=== PATIENT | female | born 1975 | race Caucasian/White ===

== ENCOUNTER 2016-06-15 07:17 | Observation (INO) | payer BC ==
[2016-06-15] VITALS (25 sets, daily range): BP systolic 100–141; BP diastolic 58–98; PULSE 65–116; RESP 15–33; Ht 160 cm; Wt 81.0 kg
[~2016-06-15] VITALS: Ht 160 cm; Wt 81.0 kg
[~2016-06-15 07:17] MED LIST: AZIT250T94 PO; HYDR-902 PO; ONDA4TAB14 PO; P-EP1CAP3 PO; PRED20TA PO
[2016-06-15] MEDS ORDERED: LIDOCAINE 1% (MPF) 30 ML INJ ONE (07:37)
[2016-06-15] MEDS ORDERED: BUPIVACAINE 0.25%/EPI (SDV) 30 ML INJ ONE (07:37)
[2016-06-15] MEDS ORDERED: BUPR-34 PO (07:42)
[2016-06-15] MEDS ORDERED: PROPOFOL 20 ML ONE (07:45)
[2016-06-15] MEDS ORDERED: GLYCOPYRROLATE 0.4 MG INJ ONE (07:45)
[2016-06-15] MEDS ORDERED: ROCURONIUM 50 MG INJ ONE (07:45)
[2016-06-15] MEDS ORDERED: MIDAZOLAM 1 MG/ML 2 ML INJ ONE (07:45)
[2016-06-15] MEDS ORDERED: NEOSTIGMINE 3 MG/3 ML SYRINGE ONE (07:45)
[2016-06-15] MEDS ORDERED: HYDROmorphONE 2 MG/ML SYG ONE (07:45)
[2016-06-15] MEDS ORDERED: ROPIVACAINE 0.5 % 30 ML VIAL ONE (07:46)
[2016-06-15] MEDS ORDERED: ONDANSETRON 4 MG INJ ONE (07:46)
[2016-06-15] MEDS ORDERED: METOCLOPRAMIDE 10 MG INJ ONE (07:46)
[2016-06-15] MEDS ORDERED: metroNIDAZOLE 500 MG/NS (PMX) 100 ML IVPB ONE ×2 (08:00→08:16)
[2016-06-15] MEDS ORDERED: CEFAZOLIN 2 GM/50 ML (PMX) 50 ML IVPB ONE (08:00)
[2016-06-15 08:07] LABS: INR 1.01; PROTIME 13.3 Sec (12.2-14.2)
[2016-06-15 08:10] LABS: BASOPHILS % 0.4 % (0.0-2.0); EOSINOPHILS # 0.2 10^3/ul (0.0-0.5); EOSINOPHILS % 1.7 % (0.0-7.0); HEMATOCRIT 39.6 % (37.0-47.0); HEMOGLOBIN 13.7 g/dl (12.0-16.0); LYMPHOCYTES # 3.4 10^3/ul (0.8-2.9); LYMPHOCYTES % 35.7 % (15.0-51.0); MEAN CORPUSCULAR HEMOGLOBIN 31.7 pg (29.0-33.0); MEAN CORPUSCULAR HGB CONC 34.5 g/dl (32.0-37.0); MEAN PLATELET VOLUME 8.1 fl (7.4-10.4); MONOCYTE # 0.6 10^3/ul (0.3-0.9); MONOCYTES % 6.9 % (0.0-11.0); NEUTROPHIL # 5.2 10^3/ul (1.6-7.5); NEUTROPHILS % 55.3 % (39.0-77.0); PLATELET COUNT 229 10^3/UL (140-440); RED BLOOD COUNT 4.31 10^6/ul (4.20-5.40); RED CELL DISTRIBUTION WIDTH 12.5 % (11.5-14.5); UNCORRECTED WBC 9.4 10^3/ul (4.8-10.8); WHITE BLOOD COUNT 9.4 10^3/ul (4.8-10.8)
[2016-06-15] MEDS ORDERED: CEFAZOLIN 1 GM INJ ONE (08:16)
[2016-06-15] MEDS ORDERED: LIDOCAINE 2% JELLY 5 ML ONE (08:18)
[2016-06-15 08:20] LABS: CONDITION 1
[2016-06-15] MEDS ORDERED: DIPHENHYDRAMINE 50 MG INJ IV PRN (08:30)
[2016-06-15] MEDS ORDERED: ONDANSETRON 4 MG INJ IV PRN (08:30)
[2016-06-15] MEDS ORDERED: hydrALAzine 20 MG INJ IV PRN (08:30)
[2016-06-15] MEDS ORDERED: HYDROmorphONE (0.2 MG/ML) 10ML SYG IV PRN ×2 (08:30)
[2016-06-15] MEDS ORDERED: MEPERIDINE 25 MG INJ IV PRN (08:30)
[2016-06-15] MEDS ORDERED: METOCLOPRAMIDE 10 MG INJ IV PRN (08:30)
[2016-06-15] MEDS ORDERED: LABETALOL HCL 20MG INJ IV PRN (08:30)
[2016-06-15 08:32] LABS: CALCIUM 9.8 mg/dl (8.4-10.2); CREATININE 0.91 mg/dl (0.44-1.00); POTASSIUM 3.4 mmol/L (3.5-5.1)
[2016-06-15] MEDS ORDERED: KETOROLAC 30 MG INJ ONE (08:58)
[2016-06-15] MEDS ORDERED: SENNA/DOCUSATE NA (8.6MG/50MG) TAB PO PRN (09:30)
[2016-06-15] MEDS ORDERED: ACETAMINOPHEN 325 MG TAB PO PRN (09:30)
[2016-06-15] MEDS ORDERED: HYDROCODONE/APAP (5/325) TAB PO PRN (09:30)
--- NOTE | 2016-06-15 09:34 | OPR ---
Date/Time of Note Date/Time of Note DATE: 06/15/16 TIME: 09:21 Operative Report Procedure Date: Jun 15, 2016 Preoperative Diagnosis Symptomatic cholelithiasis BMI 32 Postoperative Diagnosis Symptomatic cholelithiasis Abnormal liver color BMI 32 Operation Performed 1. 3 port laparoscopic cholecystectomy 2. Laparoscopic liver wedge resection biopsy 3. Local anesthetic injection, [address] Surgeon: SHALA ZARATE MD Anesthesia: general (plus local plus regional) Anesthesiologist: ANNIE CRAFT MD Estimated Blood Loss: 0 - 10 ml's Specimens Liver Gallbladder Tubes/Drains None Complications: None Pt Condition Post Procedure: stable Disposition: PACU Indications 41-year-old female with gallstones and abdominal pain here for cholecystectomy. Risks include but are not limited to bleeding, infection, abscess, seroma, damage to intestines, damage to the liver, damage to biliary tree, hernia formation, chronic pain, biloma, need for reoperations or further surgeries, CO , stroke, PE, DVT, pneumonia, organ failures, or even . Procedure Description Patient was brought and placed supine on the operating table SCDs were placed, preoperative antibiotics were administered, all pressure points were well-padded , and after induction of anesthesia patient was prepped and draped in usual sterile fashion and timeout was performed. Incision was made in the supraumbilical region, Veress was safely inserted, and after a negative SIP test , abdomen was insufflated to 15mmHg. Veress was removed and 5mm port was safely inserted. Laparoscopy was performed with a 5 mm 30 scope. No injuries were identified. The liver looks somewhat abnormal color. Gallbladder is without evidence of section. 12 mm port is placed in subxiphoid under direct visualization followed by another 5 mm port in the right upper quadrant. All port sites were injected with quarter percent Marcaine with epi and 1% lidocaine prior to any incisions. Patient was placed in reverse Trendelenburg and right side up on gallbladder was retracted superolaterally. The gallbladder was large without evidence of infection. Using electrocautery and blunt dissection I was able to identify the cystic artery and cystic duct. The duct tapered into the gallbladder. Full critical angle view was identified. Both structures were clipped 3 times proximally and once distally and transected. The gallbladder was taken off the liver with electrocautery. Hemostasis was obtained. Gallbladder was placed in an Endo Catch bag and removed through the subxiphoid port site. There was complete hemostasis. Due to the abnormality of the liver decision was made to perform liver wedge resection which was done with electrocautery and scissor with complete hemostasis right after. The specimen was sent to pathology for further evaluation. 12 mm made port site fascia was closed with Endo Close of an 0 Vicryl in a [id number]-el-tcuoo manner. Ports and CO2 were removed under direct visualization. Next complete hemostasis. Wounds were thoroughly irrigated skin was closed with 4-0 Monocryl in subcuticular fashion. Dermabond was applied. Patient was extubated and transferred to recovery room in stable condition and all counts were correct and the end of the operation 2. Bilateral transversus abdominis plane block was performed anesthesia at the termination of the operation. SHALA ZARATE MD Jun 15, 2016 09:34
[2016-06-15] MEDS: HYDROmorphONE (0.2 MG/ML) 10ML SYG IV PRN ×3 (09:43→12:13)
[2016-06-15] MEDS: HYDROmorphONE 1 MG/ML SYG IV PRN ×4 (13:18→20:51)
[2016-06-15] MEDS: D5W-0.45 NACL + KCL 20 MEQ 1,000 ML IV SCH ×3 (13:19→21:43)
--- NOTE | 2016-06-15 17:29 | PDOCDIS ---
Discharge Instructions DIAGNOSIS Discharge Diagnosis: symptomatic cholelithiasis s/p 3 port lap cholecystectomy and liver biopsy CONDITION Patient Condition: Good HOME CARE INSTRUCTIONS: Diet Instructions: Low Fat /Cholesterol ACTIVITY: Activity Restrictions: Avoid heavy lifting (Nothing > 20lbs x 2 weeks. Then gradually increase the limit.) No Sexual Activity (Sexual activity ok as long as you are comfortable and it is not olympic) Do not Drive (while on narcotics or in significant pain.) Do not operate Machinery (while on narcotics or in significatn pain.) Bathing Restrictions: Shower (No bathing for 1 week.)Activity Restrictions Comment: Ice pack to abdominal wall 10-20x/day, 20min each, prn pain/swelling. FOLLOW UP/APPOINTMENTS Appointments call to make a follow up appt with surgeon in 1-2 weeks ([phone]) SHALA ZARATE MD Jun 15, 2016 17:29
[2016-06-15] MEDS: ONDANSETRON 4 MG INJ IV PRN (18:22)
[2016-06-16] MEDS: ONDANSETRON 4 MG INJ IV PRN ×2 (00:06→03:30)
[2016-06-16 00:10] VITALS: BP 106/78; RESP 20
[2016-06-16] MEDS: HYDROmorphONE 1 MG/ML SYG IV PRN ×2 (03:31)
[2016-06-16 05:21] LABS: ALBUMIN 3.3 g/dl (3.3-4.9); POTASSIUM 4.1 mmol/L (3.5-5.1)
[2016-06-16 05:23] LABS: BASOPHILS % 0.3 % (0.0-2.0); BILIRUBIN,INDIRECT 0.4 mg/dl (0-1.1); BILIRUBIN,TOTAL 0.4 mg/dl (0.2-1.3); CREATININE 0.83 mg/dl (0.44-1.00); EOSINOPHILS # 0.1 10^3/ul (0.0-0.5); HEMATOCRIT 32.1 % (37.0-47.0); LYMPHOCYTES # 2.4 10^3/ul (0.8-2.9); LYMPHOCYTES % 29.6 % (15.0-51.0); MEAN CORPUSCULAR HEMOGLOBIN 31.8 pg (29.0-33.0); MEAN CORPUSCULAR HGB CONC 34.3 g/dl (32.0-37.0); MEAN CORPUSCULAR VOLUME 92.8 fl (82.0-101.0); MEAN PLATELET VOLUME 7.9 fl (7.4-10.4); MONOCYTE # 0.7 10^3/ul (0.3-0.9); MONOCYTES % 8.3 % (0.0-11.0); NEUTROPHIL # 4.9 10^3/ul (1.6-7.5); NEUTROPHILS % 60.8 % (39.0-77.0); PLATELET COUNT 165 10^3/UL (140-440); RED BLOOD COUNT 3.46 10^6/ul (4.20-5.40); RED CELL DISTRIBUTION WIDTH 12.9 % (11.5-14.5); UNCORRECTED WBC 8.1 10^3/ul (4.8-10.8); WHITE BLOOD COUNT 8.1 10^3/ul (4.8-10.8)
[2016-06-16 05:24] LABS: ALBUMIN/GLOBULIN RATIO 1.22; CALCIUM 8.2 mg/dl (8.4-10.2)
[2016-06-16 05:56] LABS: CONDITION 1
[2016-06-16] MEDS ORDERED: PANTOPRAZOLE (EC) 40 MG TAB PO SCH (06:00)
[2016-06-16 07:00] VITALS: BP 120/74; RESP 19
[2016-06-16] MEDS ORDERED: METOCLOPRAMIDE 10 MG INJ IV PRN (08:00)
[2016-06-16] MEDS ORDERED: KETOROLAC 30 MG INJ IV PRN (08:00)
--- NOTE | 2016-06-16 12:11 | PN ---
Date/Time of Note Date/Time of Note DATE: 06/16/16 TIME: 11:52 Assessment/Plan Lines/Catheters IV Catheter Type (from Nrs): Saline Lock Assessment/Plan Chief Complaint/Hosp Course 1. Nausea -decrease narcotics 2. BMI 32 -encourage diet optimization and exercise 3. Anemia, probably dilutional. No evidence of active bleeding 4. Hypokalemia, resolved 5. Hypocalcemia -monitor Thank you, Problems: Subjective 24 Hr Interval Summary Min pain and nausea. No vomiting. No f/c. No cp/sob. No cough. No cruz/dizzy/ visual or neuro changes. No dysuria. Exam/Review of Systems Vital Signs Vitals Vital Signs Date Time Temp Pulse Resp B/P Pulse Ox O2 Delivery O2 Flow Rate FiO2 06/16/16 07:00 98.7 86 19 120/74 97 06/15/16 20:06 Room Air 06/15/16 15:50 2.0 Intake and Output 06/15/16 06/15/16 06/16/16 15:00 23:00 07:00 Intake Total 1850 ml 1700 ml 1350 ml Output Total 5 ml Balance 1845 ml 1700 ml 1350 ml Exam Constitutional: alert, obese, oriented, No distress Psych: nl mood/affect, No anxiety, No confusion Head: atraumatic, normocephalic Eyes: EOMI, PERRL, nl conjunctiva, No icteric ENMT: mucosa pink and moist, nl external ears & nose Neck: non-tender, supple, No jvd Respiratory: normal air movement, No congested cough, No labored breathing Cardiovascular: regular rate and rhythm, No edema Gastrointestinal: soft, tender (min), No rebound or guarding Musculoskeletal: nl extremities to inspection, nl gait and stance, No joint tenderness Extremities: normal pulses, No calf tenderness, No edema Neurological: nl mental status, nl speech, nl strength Skin: nl turgor, No diaphoresis, No rash or lesions Lymph: nl lymph nodes Results Result Diagram: 06/16/16 0415 06/16/16 0415 SHALA ZARATE MD Jun 16, 2016 12:02
== END 2016-06-16 12:53 | disposition home or self-care (01) ==
LOC: SDS 07:17 → MS1 09:20 → SDS 09:20 → MS1 13:05
PROVIDERS: ADMIT Surgery; ATTEND Surgery
DX: K80.10 Calculus of gallbladder with chronic cholecystitis without obstruction (principal); D64.9 Anemia, unspecified; E87.6 Hypokalemia; E83.51 Hypocalcemia; Z88.2 Allergy status to sulfonamides
CPT/HCPCS: 47562; 80048; 80053; 84703; 85025; 85610; 85730; G0378; J0690; J1170; J1885; J2250; J2405; J2765; J2795; J3480; J2710

== ENCOUNTER 2016-08-21 10:12 | Emergency (ER) | payer BC ==
[~2016-08-21] VITALS: Ht 160 cm; Wt 75.0 kg
[~2016-08-21 10:12] MED LIST changes: -AZIT250T94 PO; +BUPR-34 PO; -HYDR-902 PO; -ONDA4TAB14 PO; -P-EP1CAP3 PO; -PRED20TA PO
[2016-08-21 10:15] VITALS: Ht 160 cm; Wt 75.0 kg
[2016-08-21] MEDS ORDERED: LIDOCAINE 2% (MDV) 20 ML INJ INJ ONE (10:30)
[2016-08-21] MEDS ORDERED: CEPH-443 PO (11:03)
--- NOTE | 2016-08-21 11:08 | ERD ---
ER Documentation Chief Complaint Date/Time DATE: 08/21/16 TIME: 11:05 Chief Complaint ingrown/infected R great toenial HPI 41-year-old female complaining of right big toenail ingrown for "quite some time ". She had pain and swelling in the lateral aspect of the right big toe. Pain was walking. Denies fever or chills. Denies purulent drainage. ROS All systems reviewed and are negative except as per history of present illness. 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 Reported Medications Bupropion Hcl* (Wellbutrin SR*) 150 Mg Tablet.sa, 150 MG PO DAILY, TAB.SA 06/15/16 Allergies Allergies: Coded Allergies: Sulfa (Sulfonamide Antibiotics) (Verified Allergy, Intermediate, NAUSEA VOMITING, 06/15/16) PMhx/Soc History of Surgery: Yes (TWO RIGHT KNEES AND TONSILECTOMYH) Anesthesia Reaction: No Hx Neurological Disorder: Yes Hx Respiratory Disorders: Yes Hx Cardiac Disorders: Yes Hx Psychiatric Problems: No (HX OF DEPRESSION) Hx Miscellaneous Medical Probl: No Hx Alcohol Use: Yes (OCCASIONALLY) Hx Substance Use: No Hx Tobacco Use: Yes (OCCASIONALLY) Physical Exam Vitals Vital Signs Date Time Temp Pulse Resp B/P Pulse Ox O2 Delivery O2 Flow Rate FiO2 08/21/16 10:15 98.4 76 14 118/78 99 Physical Exam General impression: Well-developed, well-nourished. Alert, oriented, in no acute distress Head: Normocephalic, atraumatic. Eyes: PERRL, EOM normal. Conjunctiva not injected. Respiration: Normal respiratory effort. Lungs clear to auscultate bilaterally. No wheezes, rales or rhonchi. Cardiovascular: Regular rate and rhythm. No murmurs or extra heart sounds. Extremities: Lateral aspect of the right big toe erythematous and swollen at the nail margin, tender, no purulent drainage. Normal range of motion of the right big toe. Neuro: Mental status normal, speech normal. DIRECTOR TALENT grossly intact. Skin: Normal turgor. No rash or lesions. Psych: Normal mood and affect. Results 24 hrs Current Medications Medications (Trade) Dose Ordered Sig/Rut Route PRN Reason Start Time Stop Time Status Last Admin Dose Admin Lidocaine (Xylocaine 2% (Mdv) 20 ml) 20 ml ONCE ONCE INJ 08/21/16 10:30 08/21/16 10:31 DC Procedures/MDM Procedure note: Partial excision of ingrown toenail Patient's affected toe is prepped with iodine solution. Digital block is given using 2% lidocaine. After appropriate anesthesia, the lateral edge of the right big toenail was freed from the nailbed and excised. Patient tolerated procedure well. Blood loss minimal. Patient to follow-up in 2 days for wound check. Departure Diagnosis: Primary Impression: Ingrown toenail Condition: Good Patient Instructions: Ingrown Toenail, Excised Additional Instructions: Return to this facility in 2 DAYS for a follow-up exam.Return sooner if your condition worsens. SO HOYT NP Aug 21, 2016 11:08
== END 2016-08-21 11:10 | disposition home or self-care (01) ==
LOC: FTE 10:12
DX: L60.0 Ingrowing nail (principal); F17.210 Nicotine dependence, cigarettes, uncomplicated

== ENCOUNTER 2017-02-11 00:35 | Emergency (ER) | payer BC ==
[~2017-02-11] VITALS: Ht 172.7 cm; Wt 70.0 kg
[2017-02-11 00:35] VITALS: BP 116/84; PULSE 92; RESP 15; TEMP 98.9
[~2017-02-11 00:35] MED LIST changes: +CEPH-443 PO
[2017-02-11] MEDS ORDERED: SOD CHLORIDE 0.9% 1,000 ML IV STA (00:38)
[2017-02-11 01:00] LABS: BASOPHILS % 0.3 % (0.0-2.0); EOSINOPHILS # 0.2 10^3/ul (0.0-0.5); HEMATOCRIT 36.6 % (37.0-47.0); HEMOGLOBIN 12.7 g/dl (12.0-16.0); LYMPHOCYTES # 3.2 10^3/ul (0.8-2.9); LYMPHOCYTES % 28.6 % (15.0-51.0); MEAN CORPUSCULAR HGB CONC 34.7 g/dl (32.0-37.0); MEAN CORPUSCULAR VOLUME 92.2 fl (82.0-101.0); MONOCYTE # 0.9 10^3/ul (0.3-0.9); MONOCYTES % 8.2 % (0.0-11.0); NEUTROPHILS % 60.6 % (39.0-77.0); PLATELET COUNT 203 10^3/UL (140-415); RED BLOOD COUNT 3.97 10^6/ul (4.20-5.40); RED CELL DISTRIBUTION WIDTH 12.1 % (11.5-14.5); WHITE BLOOD COUNT 11.2 10^3/ul (4.8-10.8)
[2017-02-11 01:28] LABS: ALBUMIN 4.1 g/dl (3.3-4.9); ALBUMIN/GLOBULIN RATIO 1.24; BILIRUBIN,INDIRECT 0.1 mg/dl (0-1.1); BILIRUBIN,TOTAL 0.1 mg/dl (0.2-1.3); CALCIUM 9.3 mg/dl (8.4-10.2); CREATININE 0.87 mg/dl (0.44-1.00); POTASSIUM 3.7 mmol/L (3.5-5.1); TOTAL PROTEIN 7.4 g/dl (6.1-8.1)
[2017-02-11] MEDS ORDERED: KETOROLAC 30 MG INJ IV STA (01:46)
[2017-02-11] MEDS ORDERED: KETOROLAC 30 MG INJ ONE (01:51)
[2017-02-11] MEDS ORDERED: morphine 4 MG/ML VIAL ONE (02:40)
[2017-02-11] MEDS ORDERED: ONDANSETRON 4 MG INJ ONE (02:40)
--- NOTE | 2017-02-11 02:44 | RADRPT ---
PROCEDURE: CT of the abdomen and pelvis without contrast CLINICAL INDICATION: Abdominal pain. TECHNIQUE: Spiral CT images through the abdomen and pelvis without the use of oral and without the use of intravenous contrast. The administered radiation dose is CTDI 19.31 and DLP 1110.45. One or more of the following dose reduction techniques were used: automated exposure control, adjustment o f the mA and/or kV according to patient size, or use of iterative reconstruction technique. COMPARISON: Ultrasound from 05/16/2016 FINDINGS: The study is limited by lack of intravenous contrast. Lower thorax: Slight dependent atalectasis of the lung bases is seen.. Liver: The liver is unremarkable in appearance. Biliary: Clips are seen from prior cholecystectomy.. No biliary ductal dilatation is seen. Pancreas: Unremarkable. No focal mass or inflammatory process. Spleen: The spleen is unremarkable in appearance Adrenal glands: Unremarkable in appearance. No focal nodule.. Genitourinary: No hydronephrosis or renal calculi are seen.. The bladder is unremarkable in appearan ce.. Gastrointestinal Tract: There is wall thickening inflammatory change about the distal sigmoid colon, centered about a diverticulum. Diffuse diverticulosis of the colon is seen, predominately involving the descending and sigmoid colon. No other focal areas of inflammation are seen. No free air or foc al abscess is seen. Minimal fluid in the right pelvis.. The appendix is unremarkable in appearance. Lymph nodes: No visible pathologic lymphadenopathy.. Vascular structures: The aorta and mesenteric vessels are unremarkable.. Peritoneal cavity: Stranding and slight fluid adjacent to the focal area of sigmoid diverticulitis. Reproductive Organs: IUD device is seen in place. The uterus is lobulated in contour which may refle ct fibroids. 2.6 cm probable left ovarian cyst.. Musculoskeletal: No bony abnormality is seen.. IMPRESSION: Sigmoid diverticulitis. No evidence for free air or abscess.. RPTAT: HLBE Physician Mariza Date Time Electronically viewed and signed by Physician Mariza on 02/11/2017 02:44 RENA/
[2017-02-11] MEDS ORDERED: morphine 4 MG/ML VIAL IV STA (02:58)
[2017-02-11] MEDS ORDERED: ONDANSETRON 4 MG INJ IV STA (02:58)
[2017-02-11 03:31] LABS: ADD UMIC YES; UR ASCORBIC ACID NEGATIVE (NEGATIVE); UR BACTERIA FEW /HPF (NONE SEEN); UR BILIRUBIN (Dip) NEGATIVE (NEGATIVE); UR BLOOD (Dip) 1+ mg/dL (NEGATIVE); UR CLARITY CLEAR (CLEAR); UR COLOR STRAW (YELLOW); UR GLUCOSE (Dip) NEGATIVE (NEGATIVE); UR KETONES (Dip) NEGATIVE (NEGATIVE); UR LEUKOCYTE ESTERASE (Dip) NEGATIVE Leu/ul (NEGATIVE); UR NITRITE (Dip) NEGATIVE (NEGATIVE); UR RBC 2 /HPF (0-5); UR SPECIFIC GRAVITY (Dip) 1.004 (1.003-1.030); UR TOTAL PROTEIN (Dip) NEGATIVE (NEGATIVE); UR UROBILINOGEN (Dip) NEGATIVE (NEGATIVE)
--- NOTE | 2017-02-11 04:28 | ERD ---
ER Documentation Chief Complaint Date/Time DATE: 02/11/17 TIME: 04:26 Chief Complaint HPI Very pleasant 41-year-old [facility] implant comes in with complaints of left lower quadrant abdominal pain for the past 2 days. No nausea no vomiting no chills no fever. Pain colicky nature mild to moderate intensity. No other current complaints. Normal bowel habits. ROS All systems reviewed and are negative except as per history of present illness. 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 Reported Medications Bupropion Hcl* (Wellbutrin SR*) 150 Mg Tablet.sa, 150 MG PO DAILY, TAB.SA 06/15/16 Allergies Allergies: Coded Allergies: Sulfa (Sulfonamide Antibiotics) (Verified Allergy, Intermediate, NAUSEA VOMITING, 06/15/16) PMhx/Soc History of Surgery: Yes (2x RIGHT KNEES, TONSILECTOMY, CHOLECYSTECTOMY) Anesthesia Reaction: No Hx Neurological Disorder: No Hx Respiratory Disorders: No Hx Cardiac Disorders: No Hx Psychiatric Problems: No Hx Miscellaneous Medical Probl: No Hx Alcohol Use: Yes (OCCASIONALLY) Hx Substance Use: No Hx Tobacco Use: No Smoking Status: Former smoker Physical Exam Physical Exam Const: [] Head: Atraumatic Eyes: Normal Conjunctiva ENT: Normal External Ears, Nose and Mouth. Neck: Full range of motion..~ No meningismus. Resp: Clear to auscultation bilaterally Cardio: Regular rate and rhythm, no murmurs Abd: Soft, non tender, non distended. Normal bowel sounds Skin: No petechiae or rashes Back: No midline or flank tenderness Ext: No cyanosis, or edema Neur: Awake and alert Psych: Normal Mood and Affect Result Diagram: 02/11/17 0045 02/11/17 0045 Results 24 hrs Laboratory Tests Test 02/11/17 00:45 02/11/17 02:00 White Blood Count 11.210^3/ul Red Blood Count 3.9710^6/ul Hemoglobin 12.7g/dl Hematocrit 36.6% Mean Corpuscular Volume 92.2fl Mean Corpuscular Hemoglobin 32.0pg Mean Corpuscular Hemoglobin Concent 34.7g/dl Red Cell Distribution Width 12.1% Platelet Count 69516^3/UL Mean Platelet Volume 10.0fl Neutrophils % 60.6% Lymphocytes % 28.6% Monocytes % 8.2% Eosinophils % 2.0% Basophils % 0.3% Nucleated Red Blood Cells % 0.0/100WBC Neutrophils # (Manual) 6.810^3/ul Lymphocytes # 3.210^3/ul Monocytes # 0.910^3/ul Eosinophils # 0.210^3/ul Basophils # 0.010^3/ul Nucleated Red Blood Cells # 0.010^3/ul Sodium Level 138mmol/L Potassium Level 3.7mmol/L Chloride Level 105mmol/L Carbon Dioxide Level 26mmol/L Anion Gap 11 Blood Urea Nitrogen 11mg/dl Creatinine 0.87mg/dl Glucose Level 105mg/dl Calcium Level 9.3mg/dl Total Bilirubin 0.1mg/dl Direct Bilirubin 0.00mg/dl Indirect Bilirubin 0.1mg/dl Aspartate Amino Transf (AST/SGOT) 23IU/L Alanine Aminotransferase (ALT/SGPT) 27IU/L Alkaline Phosphatase 96IU/L Total Protein 7.4g/dl Albumin 4.1g/dl Globulin 3.30g/dl Albumin/Globulin Ratio 1.24 Lipase 48U/L Urine Color STRAW Urine Clarity CLEAR Urine pH 6.0 Urine Specific [place] 1.004 Urine Ketones NEGATIVEmg/dL Urine Nitrite NEGATIVEmg/dL Urine Bilirubin NEGATIVEmg/dL Urine Urobilinogen NEGATIVEmg/dL Urine Leukocyte Esterase NEGATIVELeu/ul Urine Microscopic RBC 2/HPF Urine Microscopic WBC 0/HPF Urine Bacteria FEW/HPF Urine Hemoglobin 1+mg/dL Urine Glucose NEGATIVEmg/dL Urine Total Protein NEGATIVEmg/dl Current Medications Medications (Trade) Dose Ordered Sig/Rut Route PRN Reason Start Time Stop Time Status Last Admin Dose Admin Sodium Chloride (NS) 1,000 ml @ 1,000 mls/hr Q1H STAT IV 02/11/17 00:38 02/11/17 01:37 DC 02/11/17 02:07 Ketorolac Tromethamine (Toradol) 30 mg ONCE STAT IV 02/11/17 01:46 02/11/17 02:03 DC 02/11/17 02:07 Ketorolac Tromethamine (Toradol) 30 mg STK-MED ONCE .ROUTE 02/11/17 01:51 02/11/17 01:52 DC Ondansetron HCl (Zofran Inj) 4 mg STK-MED ONCE .ROUTE 02/11/17 02:40 02/11/17 02:41 DC Morphine Sulfate (morphine) 4 mg STK-MED ONCE .ROUTE 02/11/17 02:40 02/11/17 02:41 DC Morphine Sulfate (morphine) 4 mg ONCE STAT IV 02/11/17 02:58 02/11/17 02:59 DC 02/11/17 03:48 Ondansetron HCl (Zofran Inj) 4 mg ONCE STAT IV 02/11/17 02:58 02/11/17 02:59 DC 02/11/17 03:48 Procedures/MDM Medical decision-making: Very pleasant patient has what looks to be early diverticulitis. Stable for outpatient management. Will be discharged home with Cipro Flagyl and pain medication. Departure Diagnosis: Primary Impression: Diverticulitis Diverticulitis site: unspecified part of intestinal tract Diverticulitis bleeding: without bleeding Diverticulitis complication: with perforation and without abscess Qualified Code: K57.80 - Diverticulitis of intestine with perforation without abscess or bleeding, unspecified part of intestinal tract Condition: Stable NAHOMY NUGENT Feb 11, 2017 04:28
[2017-02-11 04:32] VITALS: Ht 172.7 cm; Wt 70.0 kg
[2017-02-11] MEDS ORDERED: CIPR500T4 PO (04:34)
[2017-02-11] MEDS ORDERED: METR500T PO (04:34)
[2017-02-11] MEDS ORDERED: ONDA4TAB14 PO (04:34)
[2017-02-11] MEDS ORDERED: HYDR-902 PO (04:34)
[2017-02-11] MEDS ORDERED: DICY10CA60 PO (05:08)
== END 2017-02-11 06:37 | disposition home or self-care (01) ==
LOC: E/R 00:35
DX: K57.80 Diverticulitis of intestine, part unspecified, with perforation and abscess without bleeding (principal); Z87.891 Personal history of nicotine dependence
CPT/HCPCS: 36415; 74176; 80053; 81001; 83690; 85025; 87086; 96374; 96375; 99285; J1885; J2270; J2405; J7030

== ENCOUNTER 2017-04-21 04:37 | Emergency (ER) | payer BC ==
[~2017-04-21] VITALS: Ht 165.1 cm; Wt 80.0 kg
[~2017-04-21 04:37] MED LIST changes: +CIPR500T4 PO; +DICY10CA60 PO; +HYDR-902 PO; +METR500T PO; +ONDA4TAB14 PO
[2017-04-21 04:47] VITALS: Ht 165.1 cm; Wt 80.0 kg
--- NOTE | 2017-04-21 05:20 | ERD ---
ER Documentation Chief Complaint Chief Complaint c/o pelvic pain intermittent x 2 months. Hx of ovarian cysts. HPI This 41-year-old female presents with a left pelvic pain that hurts worse when she runs around his physical activity. She has a recent history of an ovarian cyst and wants to see if is getting any larger or if it has ruptured. Pain is described as a sharp pain. Nausea or vomiting. ROS All systems reviewed and are negative except as per history of present illness. Medications Home Meds Active Scripts Dicyclomine Hcl* (Bentyl*) 10 Mg Capsule, 10 MG PO QID, #20 CAP Prov:NAHOMY NUGENT S. 02/11/17 Ondansetron (Ondansetron Odt) 4 Mg Tab.rapdis, 4 MG PO Q6H Y for NAUSEA AND/OR VOMITING, #10 TAB Prov:NAHOMY NUGENT S. 02/11/17 Hydrocodone/Acetaminophen (Moore 10-325 Tablet) 1 Each Tablet, 1 TAB PO Q6H Y for PAIN, #20 TAB Prov:NAHOMY NUGENT S. 02/11/17 Metronidazole* (Flagyl*) 500 Mg Tablet, 500 MG PO TID for 7 Days, TAB Prov:SAMIAHADAMNAHOMY S. 02/11/17 Ciprofloxacin Hcl* (Ciprofloxacin Hcl*) 500 Mg Tablet, 500 MG PO BID for 7 Days , TAB Prov:NAHOMY NUGENT S. 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 Reported Medications Bupropion Hcl* (Wellbutrin SR*) 150 Mg Tablet.sa, 150 MG PO DAILY, TAB.SA 06/15/16 Allergies Allergies: Coded Allergies: Sulfa (Sulfonamide Antibiotics) (Verified Allergy, Intermediate, NAUSEA VOMITING, 06/15/16) PMhx/Soc Medical and Surgical Hx: pt denies Medical Hx, pt denies Surgical Hx History of Surgery: Yes (2x RIGHT KNEES, TONSILECTOMY, CHOLECYSTECTOMY) Anesthesia Reaction: No Hx Neurological Disorder: No Hx Respiratory Disorders: No Hx Cardiac Disorders: No Hx Psychiatric Problems: No Hx Miscellaneous Medical Probl: No Hx Alcohol Use: Yes Hx Substance Use: No Hx Tobacco Use: No Smoking Status: Never smoker Physical Exam Vitals Vital Signs Date Time Temp Pulse Resp B/P Pulse Ox O2 Delivery O2 Flow Rate FiO2 04/21/17 04:47 98.2 74 16 132/84 100 Physical Exam Abd: Soft, mild right pelvic tenderness without guarding or rebound, non distended. Normal bowel sounds Procedures/MDM Pelvic pain secondary to ovarian cyst. No apparent rupture or torsion Ultrasound interpretation: Large right pelvic ovarian cyst with mild free fluid in the cul-de-sac. No torsion. Departure Diagnosis: Primary Impression: Ovarian cyst Condition: Stable AVELINA BUSTOS DO Apr 21, 2017 05:20
[2017-04-21] MEDS ORDERED: OXYC-279 PO (05:21)
--- NOTE | 2017-04-21 05:39 | RADRPT ---
PROCEDURE: ULTRASOUND PELVIS CLINICAL INDICATION: 41-year-old female with pelvic pain. TECHNIQUE: Multiple sonographic images of the pelvis were obtained utilizing a transabdominal and endovaginal technique. The images were reviewed on a PACS workstation. COMPARISON: CT abdomen/pelvis February 11, 2007. FINDINGS: The uterus is heterogeneous and measures 8.3 x 4.4 x 5.3 cm. There is a fundal focus of abnormal ech ogenicity measuring 14 x 10 mm. There is an anterior intramural hypodense focus measuring 10 x 7 mm. These are most suggestive of fibroids. The endometrial echo complex is within normal limits and ruma sures 5.4 mm. There is an intrauterine device within the endometrial canal. There is [id number] e free fluid. The right ovary has a normal echotexture and measures 7.0 x 4.0 x 3.7 cm. A right ovar fernando simple cyst measuring 5.9 x 3.3 x 3.8 cm. The left ovary has a normal echotexture and measures 3 .1 x 2.5 x 2.7 cm. There is flow identified within the ovaries bilaterally. No adnexal masses are noted. IMPRESSION: 1. Small uterine fibroids. 2. Intrauterine device. 3. Right ovarian cyst. 4. [id number]-sxtaiqgt pelvic free fluid. .Abebe Santana MD, MD Date Time Electronically viewed and signed by .Abebe Santana MD, on 04/21/2017 05:39 .M/
== END 2017-04-21 05:43 | disposition home or self-care (01) ==
LOC: E/R 04:37
DX: N83.201 Unspecified ovarian cyst, right side (principal)
CPT/HCPCS: 76830; 76856

== ENCOUNTER 2018-08-09 08:41 | Inpatient (IN) | payer BC, OTHER ==
[~2018-08-09] VITALS: Ht 160 cm; Wt 70.0 kg
[~2018-08-09 08:41] MED LIST changes: +BUPR-165 PO; -BUPR-34 PO; +DICY10CA40 PO; -DICY10CA60 PO; +HYDR-3980 PO; -HYDR-902 PO; +OXYC-279 PO
[2018-08-09] MEDS ORDERED: morphine 4 MG/ML VIAL IV STA (08:43)
[2018-08-09] MEDS ORDERED: SOD CHLORIDE 0.9% 1,000 ML IV STA (08:43)
[2018-08-09] MEDS ORDERED: ONDANSETRON 4 MG INJ IV STA ×3 (08:43→12:39)
--- NOTE | 2018-08-09 08:52 | ERD ---
ER Documentation Chief Complaint Chief Complaint HPI This is a 43-year-old female that presents to the emergency department with 2 da ys of severe abdominal pain. She states the pain is a sharp shooting pain. It is intermittent. It is most prominent in the suprapubic region that radiates to the left lower quadrant. The patient did have a similar episode of pain one year prior to arrival and was diagnosed with diverticulitis. However she denies any diarrhea or constipation. She did take magnesium and indicates she had no difficulty with constipation. She had no hemoptysis no hematemesis no melanotic stools. She states the pain is 10 out of 10 in intensity. She took Advil but this did not improve her pain. She had no fevers or shaking or chills. She denies any recent antibiotic use. She said no recent hospitalizations. ROS All systems reviewed and are negative except as per history of present illness. Medications Home Meds Active Scripts Oxycodone HCl/Acetaminophen (Percocet 5-325 mg Tablet) 1 Each Tablet, 1 EACH PO Q6, #30 TAB Prov:AVELINA BUSTOS DO 04/21/17 Dicyclomine HCl (Dicyclomine HCl) 10 Mg Capsule, 10 MG PO QID, #20 CAP Prov:NAHOMY NUGENT 02/11/17 Ondansetron (Ondansetron Odt) 4 Mg Tab.rapdis, 4 MG PO Q6H PRN for NAUSEA AND/OR VOMITING, #10 TAB Prov:NAHOMY NUGENT 02/11/17 Hydrocodone/Acetaminophen (Bigler 10-325 Tablet) 1 Each Tablet, 1 TAB PO Q6H PRN for PAIN, #20 TAB Prov:NAHOMY NUGENT 02/11/17 Metronidazole* (Flagyl*) 500 Mg Tablet, 500 MG PO TID for 7 Days, TAB Prov:NAHOMY NUGENT 02/11/17 Ciprofloxacin Hcl* (Ciprofloxacin Hcl*) 500 Mg Tablet, 500 MG PO BID for 7 Days, TAB Prov:NAHOMY NUGENT 02/11/17 Cephalexin* (Keflex*) 500 Mg Capsule, 500 MG PO QID for 5 Days, CAP Prov:SO [employer] 08/21/16 Reported Medications Bupropion Hcl* (Wellbutrin SR*) 150 Mg Tablet.sa, 150 MG PO DAILY, TAB.SA 06/15/16 Allergies Allergies: Coded Allergies: Sulfa (Sulfonamide Antibiotics) (Verified Allergy, Intermediate, NAUSEA VOMITING, 06/15/16) PMhx/Soc History of Surgery: Yes (2x RIGHT KNEES, TONSILECTOMY, CHOLECYSTECTOMY) Anesthesia Reaction: No Hx Neurological Disorder: No Hx Respiratory Disorders: No Hx Cardiac Disorders: No Hx Psychiatric Problems: No Hx Miscellaneous Medical Probl: No Hx Alcohol Use: Yes Hx Substance Use: No Hx Tobacco Use: No Physical Exam Vitals Vital Signs Date Temp Pulse Resp B/P (MAP) Pulse Ox O2 O2 Flow FiO2 Time Delivery Rate 08/09/18 98.3 95 18 132/91 100 09:12 (105) Physical Exam Constitutional:Well-developed. Well-nourished. Patient tearful and appears to be in a significant amount discomfort secondary to pain HEENT:Normocephalic. Atraumatic.Pupils were equal round reactive to light. Moist mucous membranes.No tonsillar exudates. Neck: No nuchal rigidity. No lymphadenopathy. No posterior cervical spine tenderness or step-offs. Respiratory: Not using accessory muscles of respiration.Lungs were clear to auscultation bilaterally. No rhonchi. No rales. No wheezing. Cardiovascular: Regular rate regular rhythm.No murmurs. No rubs were appreciated.S1, S2 normal. Distal pulses are palpable 2+ bilaterally. GI: Abdomen was soft. Left lower quadrant tenderness. Non Distended. No pulsatile abdominal masses or bruits. No rebound. No guarding. Bowel sounds were present and normal. Muscle skeletal: Full range of motion of both the upper and lower extremities bilaterally.Normal muscle tone.No assymetrical calf tenderness or swelling. Skin: No petechia, no purpura. No lesions on the palms or the soles of the feet. No maculopapular rash. NEURO: Patient was alert, awake, orientated x3.No facial droop. Gait observed and normal with no ataxia.Speech had regular rate and rhythm. No focal neurological deficits. Result Diagram: 08/09/18 0846 08/09/18 0846 Results 24 hrs Laboratory Tests Test 08/09/18 08:00 08/09/18 08:46 Serum HCG, Qualitative NEGATIVE White Blood Count 10.3 10^3/ul Red Blood Count 4.30 10^6/ul Hemoglobin 13.5 g/dl Hematocrit 39.9 % Mean Corpuscular Volume 92.8 fl Mean Corpuscular Hemoglobin 31.4 pg Mean Corpuscular Hemoglobin Concent 33.8 g/dl Red Cell Distribution Width 12.9 % Platelet Count 190 10^3/UL Mean Platelet Volume 9.8 fl Immature Granulocytes % 0.400 % Neutrophils % 73.5 % Lymphocytes % 16.2 % Monocytes % 8.3 % Eosinophils % 1.2 % Basophils % 0.4 % Nucleated Red Blood Cells % 0.0 /100WBC Immature Granulocytes # 0.040 10^3/ul Neutrophils # 7.5 10^3/ul Lymphocytes # 1.7 10^3/ul Monocytes # 0.9 10^3/ul Eosinophils # 0.1 10^3/ul Basophils # 0.0 10^3/ul Nucleated Red Blood Cells # 0.0 10^3/ul Urine Color YELLOW Urine Clarity CLEAR Urine pH 7.0 Urine Specific Dalton 1.012 Urine Ketones NEGATIVE mg/dL Urine Nitrite NEGATIVE mg/dL Urine Bilirubin NEGATIVE mg/dL Urine Urobilinogen NEGATIVE mg/dL Urine Leukocyte Esterase NEGATIVE Scott/ul Urine Hemoglobin NEGATIVE mg/dL Urine Glucose NEGATIVE mg/dL Urine Total Protein NEGATIVE mg/dl Sodium Level 140 mmol/L Potassium Level 4.0 mmol/L Chloride Level 104 mmol/L Carbon Dioxide Level 25 mmol/L Anion Gap 11 Blood Urea Nitrogen 13 mg/dl Creatinine 0.87 mg/dl Est Glomerular Filtrat Rate mL/min > 60 mL/min Glucose Level 97 mg/dl Calcium Level 9.6 mg/dl Total Bilirubin 0.7 mg/dl Direct Bilirubin 0.00 mg/dl Indirect Bilirubin 0.7 mg/dl Aspartate Amino Transf (AST/SGOT) 28 IU/L Alanine Aminotransferase (ALT/SGPT) 16 IU/L Alkaline Phosphatase 79 IU/L Total Protein 7.8 g/dl Albumin 4.5 g/dl Globulin 3.30 g/dl Albumin/Globulin Ratio 1.36 Amylase Level 59 U/L Lipase 40 U/L Current Medications Medications Dose Sig/Rut Start Time Status Last (Trade) Ordered Route PRN Stop Time Admin Dose Reason Admin Sodium 1,000 ml @ Q1H STAT 08/09/18 DC 08/09/18 Chloride 1,000 mls/hr IV 08:43 3/9/19 09:10 09:42 Morphine 4 mg ONCE STAT 08/09/18 DC 08/09/18 Sulfate IV 08:43 08/09/18 09:10 (morphine) 08:45 Ondansetron 4 mg ONCE STAT 08/09/18 DC 08/09/18 HCl (Zofran IV 08:43 08/09/18 09:10 Inj) 08:45 1 mg ONCE STAT 08/09/18 DC 08/09/18 Hydromorphone IV 09:21 08/09/18 09:43 HCl 09:37 (Dilaudid) Ondansetron 4 mg ONCE STAT 08/09/18 DC 08/09/18 HCl (Zofran IV 09:21 08/09/18 09:43 Inj) 09:37 IV Flush 10 ml STK-MED 08/09/18 DC (NS 10 ml) ONCE .ROUTE 10:00 08/09/18 10:01 Sodium 100 ml @ ud STK-MED 08/09/18 DC Chloride ONCE .ROUTE 10:00 08/09/18 10:01 Iohexol 150 ml STK-MED 08/09/18 DC (Omnipaque ONCE .ROUTE 10:00 08/09/18 300mg/ ml) 10:01 100 ml @ ONCE STAT 08/09/18 Metronidazole 100 mls/hr IVPB 11:10 08/09/18 12:09 200 ml @ ONCE STAT 08/09/18 Ciprofloxacin 200 mls/hr IVPB 11:10 08/09/18 / Dextrose 12:09 Procedures/MDM This patient presented to the emergency department with abdominal pain and was seen and evaluated by myself. My differential diagnosis included but was not limited to abdominal aortic aneurysm, appendicitis, pancreatitis, perforated peptic ulcer, perforated viscus, Boerhaaves syndrome or visceral pain such as diverticulitis, DKA, esophagitis, hepatitis or bowel obstruction. The patient was placed on a ekg monitor, continuous pulse oximetry, and IV access was established by nursing staff. The patient was given intravenous morphine and Zofran for analgesic control. Due to the severity of the patient's pain I did feel she required a CT scan of the abdomen. This was reviewed by the radiologist myself and indicated the following with IV contrast: 1. Mid and distal sigmoid diverticulitis with mucosal thickening and pericolonic fat stranding. There are adjacent phlegmonous changes. No mature abscess is seen. Small free fluid is noted within the pelvis. 2. Status post cholecystectomy. 3. IUD in place. Observation Note: Time: 4 hours Family Hx: No Hypertension Evaluation: Multiple exams showed improving symptoms and no evidence of improving of her symptoms as her pain continued to return. Therefore she required multiple doses of analgesic medication I did feel required admission for intractable abdominal pain. She was given IV ciprofloxacin and IV Flagyl. She will be admitted to the hospitalist for observation. Departure Diagnosis: Primary Impression: Diverticulitis Condition: Serious ROYA PRINCE MD Aug 09, 2018 08:52
[2018-08-09] MEDS ORDERED: HYDROmorphONE 1 MG/ML SYG IV STA ×2 (09:21→12:39)
[2018-08-09] MEDS ORDERED: SOD CHLORIDE 0.9% 100 ML ONE (10:00)
[2018-08-09] MEDS ORDERED: IOHEXOL 300MG/ML 150 ML BTL ONE (10:00)
[2018-08-09] MEDS ORDERED: CIPROFLOXACIN 400MG/D5W 200 ML IVPB STA (11:10)
[2018-08-09] MEDS ORDERED: metroNIDAZOLE 500 MG/NS (PMX) 100 ML IVPB STA (11:10)
[2018-08-09] MEDS ORDERED: morphine 2 MG INJ IV PRN (12:30)
[2018-08-09] MEDS ORDERED: NACL 0.9% 3 ML SYG IV SCH (12:30)
--- NOTE | 2018-08-09 12:52 | HP ---
Date/Time of Note Date/Time of Note DATE: 08/09/18 TIME: 12:44 Assessment/Plan VTE Prophylaxis SCD applied (from Nsg): Yes Pharmacological prophylaxis: NA/contraindicated Pharm contraindication: low risk/ambulating Lines/Catheters IV Catheter Type (from Nrsg): Saline Lock Assessment/Plan Assessment/Plan 1. Acute diverticulitis - Will continue NPO and IVF - Cipro and Flagyl on board and when abdominal pain improves and tolerating PO, will transition to PO - Pain control - CT scan results noted with diverticulitis - Will need outpatient GI follow up for colonoscopy in 6-8 weeks following resolution 2. Diet - NPO 3. DVT ppx - SCD 4. GI ppx - PPI 5. Disposition - Admit to med/surg for treatment of Acute diverticulitis Result Diagram: 08/09/18 0846 08/09/18 0846 Results 24hrs Laboratory Tests Test 08/09/18 08:00 08/09/18 08:46 Serum HCG, Qualitative NEGATIVE White Blood Count 10.3 Red Blood Count 4.30 Hemoglobin 13.5 Hematocrit 39.9 Mean Corpuscular Volume 92.8 Mean Corpuscular Hemoglobin 31.4 Mean Corpuscular Hemoglobin Concent 33.8 Red Cell Distribution Width 12.9 Platelet Count 190 Mean Platelet Volume 9.8 Immature Granulocytes % 0.400 Neutrophils % 73.5 Lymphocytes % 16.2 Monocytes % 8.3 Eosinophils % 1.2 Basophils % 0.4 Nucleated Red Blood Cells % 0.0 Immature Granulocytes # 0.040 H Neutrophils # 7.5 Lymphocytes # 1.7 Monocytes # 0.9 Eosinophils # 0.1 Basophils # 0.0 Nucleated Red Blood Cells # 0.0 Urine Color YELLOW Urine Clarity CLEAR Urine pH 7.0 Urine Specific Corb[place] 1.012 Urine Ketones NEGATIVE Urine Nitrite NEGATIVE Urine Bilirubin NEGATIVE Urine Urobilinogen NEGATIVE Urine Leukocyte Esterase NEGATIVE Urine Hemoglobin NEGATIVE Urine Glucose NEGATIVE Urine Total Protein NEGATIVE Sodium Level 140 Potassium Level 4.0 Chloride Level 104 Carbon Dioxide Level 25 Anion Gap 11 Blood Urea Nitrogen 13 Creatinine 0.87 Est Glomerular Filtrat Rate mL/min > 60 Glucose Level 97 Calcium Level 9.6 Total Bilirubin 0.7 Direct Bilirubin 0.00 Indirect Bilirubin 0.7 Aspartate Amino Transf (AST/SGOT) 28 Alanine Aminotransferase (ALT/SGPT) 16 Alkaline Phosphatase 79 Total Protein 7.8 Albumin 4.5 Globulin 3.30 H Albumin/Globulin Ratio 1.36 Amylase Level 59 Lipase 40 HPI/ROS Admit Date/Time Admit Date/Time 08/09/18 1200 Hx of Present Illness 43 yo F presented to ED for worsening abdominal pain for the past 2 days. Patient describes the pain as severe, sharp, intermittent, diffuse but mostly in suprapubic area radiating to upper quadrant. She denies any nausea, vomiting, fevers, chills, diarrhea, constipation, or urinary issues. Patient does admit to experiencing similar episode of pain a year ago and was diagnosed with diverticulitis. Patient initially believes she had constipation and took magnesium and advil with no relief of pain. She has had a BM today. She denies any hematochezia or melena. Patient admits to recent travel to [place] and has been not been watching her diet. Denies any chest pain or shortness of breath. ROS All 12 systems reviewed and pertinent positives as per HPI. All others negative. Constitutional: No chills, No fatigue, No nausea Eyes: No discharge ENT: No congestion Respiratory: No cough, No shortness of breath, No sputum, No wheezing Cardiovascular: No chest pain, No lightheadedness, No palpitations Gastrointestinal: pain; No blood, No constipation, No diarrhea, No nausea, No vomiting Genitourinary: no complaints Musculoskeletal: no complaints Skin: No laceration, No rash Neurologic: headache; No confusion, No dizziness, No focal-weakness, No syncope Endocrine: no complaints Lymphatic: no complaints Psychological: nl mood/affect Immunologic: no complaints PMH/Family/Social Past Medical History Medical History: no pertinent history Medications Current Medications Bupropion HCl (Wellbutrin Sr) 150 mg DAILY PO ; Start 08/10/18 at 09:00 Dextrose/Sodium Chloride 1,000 ml @ 75 mls/hr [id number] IV ; Start 08/09/18 at 12:06 IV Flush (NS 3 ml) 3 ml PER PROTOCOL IV ; Start 08/09/18 at 12:30 Ondansetron HCl (Zofran Inj) 4 mg Q6H PRN IV NAUSEA/VOMITING; Start 08/09/18 at 12:30 Acetaminophen (Tylenol Tab) 650 mg Q6H PRN PO .PAIN 1-3 OR TEMP; Start 08/09/18 at 12:30 Morphine Sulfate (morphine) 2 mg Q4H PRN IV .SEVERE PAIN 7-10; Start 08/09/18 at 12:30 Pantoprazole (Protonix Iv) 40 mg DAILY@06 IV ; Start 08/10/18 at 06:00 Ciprofloxacin/ Dextrose 200 ml @ 200 mls/hr Q12 IVPB ; Start 08/09/18 at 21:00 Metronidazole 100 ml @ 100 mls/hr Q8 IVPB ; Start 08/09/18 at 14:00 Coded Allergies: Sulfa (Sulfonamide Antibiotics) (Verified Allergy, Intermediate, NAUSEA VOMITING, 06/15/16) Past Surgical History Past Surgical Hx: cholecystectomy, other (tonsillectomy) Family History Significant Family History: no pertinent family hx Social History Alcohol Use: rarely Smoking Status: Never smoker Drug Use: none Exam/Review of Systems Vital Signs Vitals Vital Signs Date Temp Pulse Resp B/P (MAP) Pulse Ox O2 O2 Flow FiO2 Time Delivery Rate 08/09/18 98.3 87 20 108/74 99 Room Air 11:25 (85) Exam Exam General: Patient is laying in bed. distress secondary to pain Head: Normocephalic atraumatic Eyes: EOMI, pupils reactive to light Neck: Supple, nontender, midline Chest: nontender Respiratory: Clear to auscultation bilaterally. no wheezing or rhonchi Cardiovascular: S1, S2, regular rate and rhythm, no obvious murmurs Gastrointestinal: soft, diffusely tender to palpation, nondistended, bowel sounds heard. no rebound or guarding Neurological: Moves all extremities spontaneously. no focal deficits. motor and sensory intact Skin: No new skin lesions Additional Comments Home medications reviewed PROCEDURE: CT Abdomen and Pelvis with contrast. CLINICAL INDICATION: Abdominal pain. TECHNIQUE: CT scan of the abdomen and pelvis with contrast was performed utilizing axial tomographic images from the domes the diaphragm to the symphysis pubis. The patient was scanned post uncomplicated intravenous administration of 100 cc of Omnipaque-300. Coronal and sagittal reformatted images were obtained from the axial source images. Images were reviewed on a high-resolution PACS workstation. The total exam CTDI equals 17.59 mGy and the total exam DLP equals 1004.80 mGy-cm. One or more of the following dose reduction techniques were used: Automated exposure control, adjustment of the mA and / or kV according to patient size, or use of iterative reconstruction technique. DICOM images are available. COMPARISON: None. FINDINGS: The lung bases demonstrate mild bibasilar atelectasis. The liver is normal in size and contour. No focal intrahepatic masses are identified. There is no intra or extrahepatic biliary dilatation. The gallbladder is surgically absent. The spleen, pancreas, and adrenal glands are unremarkable. The kidneys are symmetric in size and demonstrate normal enhancement. No hydronephrosis or hydroureter is seen. No renal parenchymal mass is identified. The urinary bladder is unremarkable. The bowel demonstrates normal course and caliber. There is no evidence of bowel obstruction. The appendix is normal in appearance. There are sigmoid diverticula with mucosal thickening of the mid and distal sigmoid colon. There is pericolonic fat stranding. An IUD is in place. There is small free fluid in the pelvis. No intraperitoneal free air or mature abscess identified. No retroperitoneal, mesenteric, or inguinal adenopathy is identified. The abdominal aorta and major branching vessels are normal in caliber. The osseous structures are unremarkable. No significant subcutaneous soft tissue abnormality is identified. IMPRESSION: 1. Mid and distal sigmoid diverticulitis with mucosal thickening and pericolonic fat stranding. There are adjacent phlegmonous changes. No mature abscess is seen. Small free fluid is noted within the pelvis. 2. Status post cholecystectomy. 3. IUD in [address]. RPTAT: HH .Madyson Mayorga MD, Date Time Electronically viewed and signed by .Madyson Mayorga MD, on 08/09/2018 11:01 FRACISCO BELLE MD Aug 09, 2018 12:52
[2018-08-09] MEDS ORDERED: ONDANSETRON 4 MG INJ IV PRN (13:00)
[2018-08-09] MEDS ORDERED: ACETAMINOPHEN 325 MG TAB PO PRN (13:00)
[2018-08-09 13:30] VITALS: BP 117/72; PULSE 84; RESP 17
[2018-08-09] MEDS: metroNIDAZOLE 500 MG/NS (PMX) 100 ML IVPB SCH ×2 (13:55→21:38)
[2018-08-09] MEDS: DEXTROSE 5%-0.45% NACL 1,000 ML IV SCH (13:58)
[2018-08-09] MEDS: ACETAMINOPHEN 325 MG TAB PO PRN (15:41)
[2018-08-09 15:50] VITALS: Ht 160 cm; Wt 70.0 kg
[2018-08-09] MEDS: ONDANSETRON 4 MG INJ IV PRN (17:56)
[2018-08-09] MEDS: HYDROmorphONE 1 MG/ML SYG IV PRN (17:56)
[2018-08-09 19:40] VITALS: BP 98/59; PULSE 74; RESP 18
[2018-08-09] MEDS: CIPROFLOXACIN 400MG/D5W 200 ML IVPB SCH (22:37)
[2018-08-10] MEDS: HYDROmorphONE 1 MG/ML SYG IV PRN (01:29)
[2018-08-10 02:30] VITALS: BP 106/60; PULSE 65; RESP 18
[2018-08-10] MEDS: DEXTROSE 5%-0.45% NACL 1,000 ML IV SCH (05:52)
[2018-08-10] MEDS: metroNIDAZOLE 500 MG/NS (PMX) 100 ML IVPB SCH (05:52)
[2018-08-10] MEDS ORDERED: PANTOPRAZOLE 40 MG INJ IV SCH (06:00)
[2018-08-10] MEDS ORDERED: VITAMIN A & D 5 GM OINT PACKET TOP ONE (06:09)
[2018-08-10] MEDS: ACETAMINOPHEN 325 MG TAB PO PRN (06:12)
[2018-08-10 07:23] VITALS: BP 95/52; PULSE 64; RESP 18
[2018-08-10] MEDS: ONDANSETRON 4 MG INJ IV PRN (07:39)
--- NOTE | 2018-08-10 08:53 | PN ---
Date/Time of Note Date/Time of Note DATE: 08/10/18 TIME: 08:53 Assessment/Plan VTE Prophylaxis Risk score (from Ns)>0 risk: 1 SCD applied (from Ns): No SCD contraindicated: low risk/ambulating Pharmacological prophylaxis: NA/contraindicated Pharm contraindication: low risk/ambulating Lines/Catheters IV [facility]from [facility] Peripheral IV Urinary Cath still in place: No Assessment/Plan Assessment/Plan 1. Acute diverticulitis - Abdominal pain improving and will advance diet as tolerated. If doing well follow PO intake with no worsening of abdominal pain will d/c home - Will transition to PO Cipro and Flagyl to complete a 10 day course - Pain control - CT scan results noted with diverticulitis - Will need outpatient GI follow up for colonoscopy in 6-8 weeks following resolution 2. Disposition - When tolerating PO intake without any worsening of abdominal pain, will d/c home Result Diagram: 08/10/18 0433 08/10/18 0432 Results 24hrs Laboratory Tests Test 08/10/18 04:32 08/10/18 04:33 Sodium Level 140 Potassium Level 3.9 Chloride Level 105 Carbon Dioxide Level 27 Anion Gap 8 Blood Urea Nitrogen 7 Creatinine 0.87 Est Glomerular Filtrat Rate mL/min > 60 Glucose Level 94 Calcium Level 8.5 Magnesium Level 2.2 Total Bilirubin 0.6 Direct Bilirubin 0.00 Indirect Bilirubin 0.6 Aspartate Amino Transf (AST/SGOT) 24 Alanine Aminotransferase (ALT/SGPT) 20 Alkaline Phosphatase 57 Total Protein 6.1 # Albumin 3.4 # Globulin 2.70 Albumin/Globulin Ratio 1.25 White Blood Count 5.8 # Red Blood Count 3.56 L Hemoglobin 11.3 L Hematocrit 33.9 L Mean Corpuscular Volume 95.2 Mean Corpuscular Hemoglobin 31.7 Mean Corpuscular Hemoglobin Concent 33.3 Red Cell Distribution Width 12.8 Platelet Count 153 Mean Platelet Volume 10.2 Immature Granulocytes % 0.200 Neutrophils % 53.9 Lymphocytes % 33.0 Monocytes % 10.2 Eosinophils % 2.4 Basophils % 0.3 Nucleated Red Blood Cells % 0.0 Immature Granulocytes # 0.010 Neutrophils # 3.1 Lymphocytes # 1.9 Monocytes # 0.6 Eosinophils # 0.1 Basophils # 0.0 Nucleated Red Blood Cells # 0.0 Subjective 24 Hr Interval Summary Free Text/Dictation Patient is doing well and states lower abdominal pain is significantly better but wet press tender in lower abdominal area. No acute overnight events. Tolerated clear diet this am. Exam/Review of Systems Exam Vitals Vital Signs Date Temp Pulse Resp B/P (MAP) Pulse Ox O2 O2 Flow FiO2 Time Delivery Rate 08/10/18 98.0 64 18 95/52 (66) 93 Room Air 07:23 Intake and Output 08/09/18 08/09/18 08/10/18 1414:59 22:59 06:59 IntakeIntake Total 300 ml 400 ml 1000 ml BalanceBalance 300 ml 400 ml 1000 ml Exam General: Patient is laying in bed. more comfortable this am Chest: nontender Respiratory: Clear to auscultation bilaterally. no wheezing or rhonchi Cardiovascular: S1, S2, regular rate and rhythm, no obvious murmurs Gastrointestinal: soft, mildly tender to palpation, nondistended, bowel sounds heard Skin: No new skin lesions Results Results 24hrs Laboratory Tests Test 08/10/18 04:32 08/10/18 04:33 Sodium Level 140 Potassium Level 3.9 Chloride Level 105 Carbon Dioxide Level 27 Anion Gap 8 Blood Urea Nitrogen 7 Creatinine 0.87 Est Glomerular Filtrat Rate mL/min > 60 Glucose Level 94 Calcium Level 8.5 Magnesium Level 2.2 Total Bilirubin 0.6 Direct Bilirubin 0.00 Indirect Bilirubin 0.6 Aspartate Amino Transf (AST/SGOT) 24 Alanine Aminotransferase (ALT/SGPT) 20 Alkaline Phosphatase 57 Total Protein 6.1 # Albumin 3.4 # Globulin 2.70 Albumin/Globulin Ratio 1.25 White Blood Count 5.8 # Red Blood Count 3.56 L Hemoglobin 11.3 L Hematocrit 33.9 L Mean Corpuscular Volume 95.2 Mean Corpuscular Hemoglobin 31.7 Mean Corpuscular Hemoglobin Concent 33.3 Red Cell Distribution Width 12.8 Platelet Count 153 Mean Platelet Volume 10.2 Immature Granulocytes % 0.200 Neutrophils % 53.9 Lymphocytes % 33.0 Monocytes % 10.2 Eosinophils % 2.4 Basophils % 0.3 Nucleated Red Blood Cells % 0.0 Immature Granulocytes # 0.010 Neutrophils # 3.1 Lymphocytes # 1.9 Monocytes # 0.6 Eosinophils # 0.1 Basophils # 0.0 Nucleated Red Blood Cells # 0.0 Medications Medication Current Medications Bupropion HCl (Wellbutrin Sr) 150 mg DAILY PO ; Start 08/10/18 at 09:00 Dextrose/Sodium Chloride 1,000 ml @ 75 mls/hr [id number] IV Last administered on 08/10/18 05:52; Admin Dose 75 MLS/HR; Start 08/09/18 at 12:06 IV Flush (NS 3 ml) 3 ml PER PROTOCOL IV ; Start 08/09/18 at 12:30 Ondansetron HCl (Zofran Inj) 4 mg Q6H PRN IV NAUSEA/VOMITING Last administered on 08/10/18 07:39; Admin Dose 4 MG; Start 08/09/18 at 12:30 Acetaminophen (Tylenol Tab) 650 mg Q6H PRN PO .PAIN 1-3 OR TEMP Last administered on 08/10/18 06:12; Admin Dose 650 MG; Start 08/09/18 at 12:30 Morphine Sulfate (morphine) 2 mg Q4H PRN IV MODERATE PAIN LEVEL 4-6 Last administered on 08/10/18 07:40; Admin Dose 2 MG; Start 08/09/18 at 12:30 Pantoprazole (Protonix Iv) 40 mg DAILY@06 IV Last administered on 08/10/18 05:52; Admin Dose 40 MG; Start 08/10/18 at 06:00 Ciprofloxacin/ Dextrose 200 ml @ 200 mls/hr Q12 IVPB Last administered on 08/09/18 22:37; Admin Dose 200 MLS/HR; Start 08/09/18 at 21:00 Metronidazole 100 ml @ 100 mls/hr Q8 IVPB Last administered on 08/10/18 05:52 ; Admin Dose 100 MLS/HR; Start 08/09/18 at 14:00 Hydromorphone HCl (Dilaudid) 1 mg Q4H PRN IV SEVERE PAIN LEVEL 7-10 Last administered on 08/10/18 01:29; Admin Dose 1 MG; Start 08/09/18 at 13:00 Ondansetron HCl (Zofran Inj) 4 mg BRIDGE ORDER PRN IV NAUSEA/VOMITING; Start 08/09/18 at 13:00; Stop 08/10/18 at 12:59 Acetaminophen (Tylenol Tab) 650 mg ER BRIDGE PRN PO .MILD PAIN 1-3 OR TEMP; Start 08/09/18 at 13:00; Stop 08/10/18 at 12:59 YOSHI,FRACISCO MD Aug 10, 2018 08:53
[2018-08-10] MEDS ORDERED: HYDROCODONE/APAP (5/325) TAB PO PRN (09:00)
[2018-08-10] MEDS ORDERED: BUPROPION (SR) 150 MG TAB PO SCH (09:00)
[2018-08-10] MEDS: CIPROFLOXACIN 400MG/D5W 200 ML IVPB SCH (10:01)
[2018-08-10] MEDS ORDERED: traMADol 50 MG TAB PO PRN (10:30)
[2018-08-10] MEDS ORDERED: HYDR-3601 PO (13:36)
[2018-08-10] MEDS ORDERED: METR-122 PO (13:39)
[2018-08-10] MEDS ORDERED: CIPR500T4 PO (13:39)
--- NOTE | 2018-08-10 13:46 | PDOCDIS ---
Discharge Instructions DIAGNOSIS Discharge Diagnosis 1. Acute diverticulitis CONDITION [id number] Patient Condition: [id number] Stable HOME CARE INSTRUCTIONS: [id number] Diet Instructions: [id number] Regular ACTIVITY: [id number] Activity Restrictions: [id number] No Restrictions FOLLOW UP/APPOINTMENTS Follow-up Plan 1. Follow up with your primary care physician in 1 week 2. Take Cipro 500mg twice a day with next dose tonight (08/10) until you finish the prescription. Take Flagyl every 8 hours with next dose tonight as well (08/10) until prescription finished to complete a 10 day course of antibiotics 3. You should follow up with a GI specialist to schedule a colonoscopy in 8 weeks once diverticulitis has resolved 4. Take pain control as needed and increase fiber in diet to avoid constipation 5. If experiencing concerning symptoms, please go to the nearest emergency department FRACISCO BELLE MD Aug 10, 2018 13:46
[2018-08-10] MEDS ORDERED: metroNIDAZOLE 500 MG TAB PO SCH (14:00)
[2018-08-10 15:03] VITALS: BP 104/58; PULSE 82; RESP 18
--- NOTE | 2018-08-10 17:35 | DS ---
Date/Time of Note Date/Time of Note DATE: 08/10/18 TIME: 17:33 Discharge Summary Admission/Discharge Info Admit Date/Time Aug 09, 2018 at 12:49 Discharge Date/Time Aug 10, 2018 at 15:30 Discharge Diagnosis 1. Acute diverticulitis Patient Condition: Stable Procedures PROCEDURE: CT Abdomen and Pelvis with contrast. CLINICAL INDICATION: Abdominal pain. TECHNIQUE: CT scan of the abdomen and pelvis with contrast was performed utilizing axial tomographic images from the domes the diaphragm to the symphysis pubis. The patient was scanned post uncomplicated intravenous administration of 100 cc of Omnipaque-300. Coronal and sagittal reformatted images were obtained from the axial source images. Images were reviewed on a high-resolution PACS workstation. The total exam CTDI equals 17.59 mGy and the total exam DLP equals 1004.80 mGy-cm. One or more of the following dose reduction techniques were used: Automated exposure control, adjustment of the mA and / or kV according to patient size, or use of iterative reconstruction technique. DICOM images are available. COMPARISON: None. FINDINGS: The lung bases demonstrate mild bibasilar atelectasis. The liver is normal in size and contour. No focal intrahepatic masses are identified. There is no intra or extrahepatic biliary dilatation. The gallbladder is surgically absent. The spleen, pancreas, and adrenal glands are unremarkable. The kidneys are symmetric in size and demonstrate normal enhancement. No hydronephrosis or hydroureter is seen. No renal parenchymal mass is identified. The urinary bladder is unremarkable. The bowel demonstrates normal course and caliber. There is no evidence of bowel obstruction. The appendix is normal in appearance. There are sigmoid diverticula with mucosal thickening of the mid and distal sigmoid colon. There is pericolonic fat stranding. An IUD is in place. There is small free fluid in the pelvis. No intraperitoneal free air or mature abscess identified. No retroperitoneal, mesenteric, or inguinal adenopathy is identified. The abdominal aorta and major branching vessels are normal in caliber. The osseous structures are unremarkable. No significant subcutaneous soft tissue abnormality is identified. IMPRESSION: 1. Mid and distal sigmoid diverticulitis with mucosal thickening and pericolonic fat stranding. There are adjacent phlegmonous changes. No mature abscess is seen. Small free fluid is noted within the pelvis. 2. Status post cholecystectomy. 3. IUD in place. RPTAT: HH .Madyson Mayorga MD, MD Date Time Electronically viewed and signed by .Madyson Mayorga MD, MD on 08/09/2018 11:01 Hx of Present Illness 43 yo F presented to ED for worsening abdominal pain for the past 2 days. Patient describes the pain as severe, sharp, intermittent, diffuse but mostly in suprapubic area radiating to upper quadrant. She denies any nausea, vomiting, fevers, chills, diarrhea, constipation, or urinary issues. Patient does admit to experiencing similar episode of pain a year ago and was diagnosed with diverticulitis. Patient initially believes she had constipation and took magnesium and advil with no relief of pain. She has had a BM today. She denies any hematochezia or melena. Patient admits to recent travel to [place] and has been not been watching her diet. Denies any chest pain or shortness of breath. Hospital Course Patient was admitted for treatment of acute diverticulitis and started on IV antibiotics and kept NPO. Patient pain improved and she was started on clear diet which she tolerated well. Diet was advance which she tolerated well. She was transitioned to PO antibiotics and pain control. Patient was counseled about follow up with GI in 8 weeks once inflammation resolved for colonoscopy. Patients presenting symptoms improved and patient was discharged home in stable condition with course of PO antibiotics. Home Meds Active Scripts Metronidazole* (Metronidazole*) 500 Mg Tablet, 500 MG PO Q8 for 9 Days, #26 TAB Prov:FRACISCO BELLE MD 08/10/18 Ciprofloxacin Hcl* (Ciprofloxacin Hcl*) 500 Mg Tablet, 500 MG PO BID for 9 Days, #8 TAB Prov:FRACISCO BELLE MD 08/10/18 Hydrocodone Bit-Acetaminophen (Hydrocodone Bit-APAP) 5-325MG Tablet, 1 TAB PO Q4H PRN for MODERATE PAIN LEVEL 4-6 for 7 Days, #20 TAB Prov:FRACISCO BELLE MD 08/10/18 Reported Medications Bupropion Hcl* (Wellbutrin SR*) 150 Mg Tablet.sa, 150 MG PO DAILY, TAB.SA 06/15/16 Discontinued Scripts Oxycodone HCl/Acetaminophen (Percocet 5-325 mg Tablet) 1 Each Tablet, 1 EACH PO Q6, #30 TAB Prov:AVELINA BUSTOS 04/21/17 Dicyclomine HCl (Dicyclomine HCl) 10 Mg Capsule, 10 MG PO QID, #20 CAP Prov:NAHOMY NUGENT S. 02/11/17 Ondansetron (Ondansetron Odt) 4 Mg Tab.rapdis, 4 MG PO Q6H PRN for NAUSEA AND/OR VOMITING, #10 TAB Prov:NAHOMY NUGENT S. 02/11/17 Hydrocodone/Acetaminophen ([place] 10-325 Tablet) 1 Each Tablet, 1 TAB PO Q6H PRN for PAIN, #20 TAB Prov:YVETTELUCINDANAHOMY S. 02/11/17 Metronidazole* (Flagyl*) 500 Mg Tablet, 500 MG PO TID for 7 Days, TAB Prov:YVETTELUCINDANAHOMY S. 02/11/17 Ciprofloxacin Hcl* (Ciprofloxacin Hcl*) 500 Mg Tablet, 500 MG PO BID for 7 Days, TAB Prov:YVETTELUCINDANAHOMY S. 02/11/17 Cephalexin* (Keflex*) 500 Mg Capsule, 500 MG PO QID for 5 Days, CAP Prov:SO HOYT [employer] 08/21/16 Follow-up Plan 1. Follow up with your primary care physician in 1 week 2. Take Cipro 500mg twice a day with next dose tonight (08/10) until you finish the prescription. Take Flagyl every 8 hours with next dose tonight as well (08/10) until prescription finished to complete a 10 day course of antibiotics 3. You should follow up with a GI specialist to schedule a colonoscopy in 8 weeks once diverticulitis has resolved 4. Take pain control as needed and increase fiber in diet to avoid constipation 5. If experiencing concerning symptoms, please go to the nearest emergency department Primary Care Provider Care Physician No Primary Time spent on discharge: > 30 minutes Pending Labs Laboratory Tests Test 08/10/18 04:32 08/10/18 04:33 Sodium Level 140 mmol/L (135-144) Potassium Level 3.9 mmol/L (3.5-5.1) Chloride Level 105 mmol/L (97-110) Carbon Dioxide Level 27 mmol/L (21-31) Anion Gap 8 (5-13) Blood Urea Nitrogen 7 mg/dl (7-20) Creatinine 0.87 mg/dl (0.44-1.00) Est Glomerular Filtrat > 60 mL/min (>60) Rate mL/min Glucose Level 94 mg/dl (70-220) Calcium Level 8.5 mg/dl (8.4-10.2) Magnesium Level 2.2 mg/dl (1.7-2.5) Total Bilirubin 0.6 mg/dl (0.2-1.3) Direct Bilirubin 0.00 mg/dl (0.00-0.20) Indirect Bilirubin 0.6 mg/dl (0-1.1) Aspartate Amino 24 IU/L (15-46) Transf (AST/SGOT) Alanine 20 IU/L (13-69) Aminotransferase (ALT/SGPT) Alkaline Phosphatase 57 IU/L (42-121) Total Protein 6.1 g/dl (6.1-8.1) Albumin 3.4 g/dl (3.3-4.9) Globulin 2.70 g/dl (1.3-3.2) Albumin/Globulin Ratio 1.25 White Blood Count 5.8 10^3/ul (4.8-10.8) Red Blood Count 3.56 10^6/ul (4.20-5.40) Hemoglobin 11.3 g/dl (12.0-16.0) Hematocrit 33.9 % (37.0-47.0) Mean Corpuscular Volume 95.2 fl (82.0-101.0) Mean Corpuscular Hemoglobin 31.7 pg (29.0-33.0) Mean Corpuscular 33.3 g/dl (32.0-37.0) Hemoglobin Concent Red Cell Distribution Width 12.8 % (11.5-14.5) Platelet Count 153 10^3/UL (140-415) Mean Platelet Volume 10.2 fl (7.4-10.4) Immature Granulocytes % 0.200 % (0.001-0.429) Neutrophils % 53.9 % (39.0-77.0) Lymphocytes % 33.0 % (15.0-51.0) Monocytes % 10.2 % (0.0-11.0) Eosinophils % 2.4 % (0.0-7.0) Basophils % 0.3 % (0.0-2.0) Nucleated Red Blood Cells % 0.0 /100WBC (0.0-0.0) Immature Granulocytes # 0.010 10^3/ul (0.0-0.031) Neutrophils # 3.1 10^3/ul (1.6-7.5) Lymphocytes # 1.9 10^3/ul (0.8-2.9) Monocytes # 0.6 10^3/ul (0.3-0.9) Eosinophils # 0.1 10^3/ul (0.0-0.5) Basophils # 0.0 10^3/ul (0.0-0.1) Nucleated Red Blood Cells # 0.0 10^3/ul (0.0-0.0) FRACISCO BELLE MD Aug 10, 2018 17:35
[2018-08-12] MEDS ORDERED: CIPR500T4 PO (16:39)
== END 2018-08-10 15:30 | disposition home or self-care (01) | DRG 392 ==
LOC: E/R 08:41 → MS1 12:49
PROVIDERS: ADMIT Internal Medicine; ATTEND Internal Medicine
DX: K57.32 Diverticulitis of large intestine without perforation or abscess without bleeding (principal); Z90.49 Acquired absence of other specified parts of digestive tract
CPT/HCPCS: 74177; 80053; 81003; 82150; 83690; 83735; 84703; 85025; 87086; 96365; 96375; 96376; C9113; J0744; J1170; J2270; J2405; J7030; J7042; Q9967